=== PATIENT | female | born 1935 | race Caucasian/White ===

== ENCOUNTER 2018-03-30 12:43 | Emergency (ER) | payer MEDICARE, BC ==
[~2018-03-30] VITALS: Ht 157.5 cm; Wt 78.9 kg
[~2018-03-30 12:43] MED LIST: ACETAMINOPHEN325 M1 PO; ALBUTEROL SULFAT2 MG PO; ALBUTEROL0.63 MG/3 NEB; AMLODIPINE BESYL5 MG PO; ASA81 MG PO; AZATHIOPRINE50 MG PO; B-12500 MCG PO; CALCIUM + VITA1 EACH PO; CEFDINIR300 MG PO; CELEXA20 MG PO; CITALOPRAM HBR20 MG PO; CITALOPRAM HBR40 MG PO; COMBIVENT RESPIM4 GM IH; DIOVAN160 MG PO; DIOVAN80 MG PO; DOCUSATE SODIU100 MG PO; DONEPEZIL HCL10 MG; DONEPEZIL HCL10 MG PO; ECOTRIN325 MG PO; EFFER-K 20 MEQ20 MEQ PO; FERROUS SULFAT325 MG PO; FISH OIL 1,2001 EAC1 PO; FUROSEMIDE20 MG PO; HUMULIN N100 UNIT/1 SQ; LANSOPRAZOLE30 MG PO; LASIX40 MG PO; LEVAQUIN500 MG PO; LIPITOR20 MG PO; MAALOX ADVANCE770 ML PO; METOPROLOL PO; METOPROLOL TART25 MG PO; MULTI-VITAMIN1 EACH PO; NORCO 10-325 T1 EACH PO; NORCO PO; NORVASC5 MG PO; PANTOPRAZOLE SO40 MG PO; POTASSIUM CHLO10 ME1 PO; PREDNISONE5 MG PO; PROVENTIL PO; PYRIDOSTIGMINE60 MG PO; TESSALON PERLE100 MG PO; TRANSDERM-SCOP1 EACH TD; TRAZODONE HCL50 MG PO; TYLENOL WITH C1 EACH PO; VESICARE5 MG PO; VITAMIN B-121000 MC1 PO; VITAMIN C500 M1 PO; VITAMIN C500 MG PO; VITAMIN D10000 UNIT PO; VITAMIN D400 UNI1 PO; VITAMIN D5000 UNIT; Z.0.ALBUTEROL0.63 MG NEB; Z.0.AMLODIPINE BESYL PO; Z.0.CITALOPRAM HBR20 PO; Z.0.DETROL LA4 MG PO; Z.0.DIOVAN160 MG PO; Z.0.FISH OIL300 MG; Z.0.IMURAN50 MG PO; Z.0.LANSOPRAZOLE30 M PO; Z.0.LOPRESSOR25 MG PO; Z.0.MILLIPRED5 MG PO; Z.0.NORCO 10-325 T1 PO; Z.1.VITAMIN D400 UNI PO; ZOLPIDEM; [UNRECOGNIZED DRUG - OTHER]; [UNRECOGNIZED DRUG - OTHER] TOP
[2018-03-30] MEDS ORDERED: ACETAMINOPHEN 325 MG TAB PO ONE (13:00)
--- NOTE | 2018-03-30 13:49 | Diagnostic Imaging Report ---
PROCEDURE:X-RAY LEFT HAND, THREE OR MORE VIEWS COMPARISON:None. INDICATIONS:FALL FINDINGS: Plate-screw fixation of the distal radius. Moderate degenerative changes in the DIP, PIP, moderate severe at the first MCP, mild in the remaining MCP, and moderate in the carpal bones with moderate to severe at the radiocarpal joint with degenerative cystic changes between the scaphoid and lunate. There are no fractures, dislocations, lytic or blastic lesions. The bones are well-mineralized. Diffuse soft tissue swelling and subcutaneous emphysema along the ulnar aspect of the left hand. CONCLUSION: 1. No acute fractures. 2. Moderate degenerative changes especially in the wrist. 3. Subcutaneous edema and subcutaneous gas along the ulnar aspect of the left hand. Dictated by: Byron Gómez M.D. on 03/30/2018 at 13:51 Electronically approved by: Byron Gómez M.D. on 03/30/2018 at 13:51
--- NOTE | 2018-03-30 14:17 | Diagnostic Imaging Report ---
History: Fall Comparison studies:CT head 05/18/2017 Technique: Axial images were obtained from the brain and cervical spine. Coronal and sagittal images reconstructed from the axial data. Intravenous contrast: None Findings: Head CT: Scalp/skull: No abnormalities. No fractures, blastic or lytic lesions. Brain sulci: Moderately prominent. Ventricles: Moderate prominence. No hydrocephalus. Extra-axial spaces: No masses. No fluid collections. Parenchyma: Scattered hypodensities of the periventricular and the white matter, nonspecific. No masses, hemorrhage, acute or chronic cortical vascular insults. Sellar/suprasellar region: No abnormalities. Craniocervical junction: Patent foramen magnum. No Chiari one malformation. Atherosclerotic calcifications of the carotid siphons. Cervical spine CT: Fractures: None. Soft tissues: No gross abnormalities. Atlantoaxial articulation: Degenerative changes q. day by decreased predental space, sclerosis and marginal osteophytes. Alignment: Reversal of the cervical spine lordosis centered at C5. Grade 1 anterolisthesis of C2 over C3 and C3 over C4.. No scoliosis. Cervicomedullary junction: No abnormalities. Patent foramen magnum. Vertebrae: No infection or neoplasm. Degenerative changes: Facet hypertrophy and uncinate process hypertrophy results in moderate multilevel foraminal narrowing and mild canal stenosis. Incidental findings: Spiculated nodule partially visualized at the right upper lobe measuring approximately 1 cm in AP diameter. Impression: Head CT: 1. No acute intracranial abnormality. 2. Moderate diffuse volume loss. 3. Moderate chronic microvascular ischemic changes of the white matter. Cervical spine CT: 1. No acute abnormalities. Degenerative changes of the cervical spine 2. Cannot exclude ligament, spinal cord and or vascular abnormalities on the basis of this examination. 3. Incidentally noted 1 cm spiculated nodule at the right lung apex, not seen in previous CT chest 05/20/2017, recommend further evaluation with CT chest with contrast Signed by: DR Filipe Browning M.D. on 03/30/2018 2:14 PM
== END 2018-03-30 17:00 | disposition home or self-care (01) ==
LOC: ER 13:09
DX: S06.0X0A Concussion without loss of consciousness, initial encounter (principal); S60.212A Contusion of left wrist, initial encounter; W06.XXXA Fall from bed, initial encounter; Y92.122 Bedroom in nursing home as the place of occurrence of the external cause
CPT/HCPCS: 70450; 72125; 99284

== ENCOUNTER 2019-05-21 10:54 | Inpatient (IN) | payer MEDICARE, BC ==
[~2019-05-21] VITALS: Ht 157.5 cm; Wt 81.2 kg
--- OUTSIDE RECORDS SUMMARY | 2019-05-21 10:57 | XMS REPORT ---
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 Allergies, Adverse Reactions, Alerts This patient has no known allergies or adverse reactions. Medications This patient has no known medications. Results Test Description Test Time Test Comments Text Results Atomic Results Result Comments HAND 3+ VIEWS LEFT [place] [address] Patient Name: RODGER CASTELLON MR #: [id number] : 1935 Age/Sex: 82/F Req #: [id number] Adm Physician: Ordered by: LUIS MANUEL STARK MD Report #: [id number] Location: ER Room/Bed: Procedure: [id number] DX/HAND 3+ VIEWS LEFT Exam Date: 03/30/18 Exam Time: 1320 REPORT STATUS: Signed PROCEDURE: X-RAY LEFT HAND, THREE OR MORE VIEWS COMPARISON: None. INDICATIONS: FALL FINDINGS: Plate-screw fixation of the distal radius. Moderate degenerative changes in the DIP, PIP, moderate severe at the first MCP, mild in the remaining MCP, and moderate in the carpal bones with moderate to severe at the radiocarpal joint with degenerative cystic changes between the scaphoid and lunate. There are no fractures, dislocations, lytic or blastic lesions. The bones are well-mineralized. Diffuse soft tissue swelling and subcutaneous emphysema along the ulnar aspect of the left hand. CONCLUSION: 1. No acute fractures. 2. Moderate degenerative changes especially in the wrist. 3. Subcutaneous edema and subcutaneous gas along the ulnar aspect of the left hand. Dictated by: Claire Gómez M.D. on 03/30/2018 at 13:51 Electronically approved by: Claire Gómez M.D. on 03/30/2018 at 13:51 Dictated By: CLAIRE GÓMEZ MD 1351 Transcribed By: SELAM on 03/30/18 1351 COPY TO: LUIS MANUEL STARK MD CT CERVICAL SPINE WO [place] [address] Patient Name: RODGER CASTELLON MR #: [id number] : 1935 Age/Sex: 82/F Req #: [id number] Adm Physician: Ordered by: LUIS MANUEL STARK MD Report #: [id number] Location: ER Room/Bed: Procedure: [id number] CT/CT CERVICAL SPINE WO Exam Date: 03/30/18 Exam Time: 1320 REPORT STATUS: Signed History: Fall Comparison studies:CT head 05/18/2017 Technique: Axial images were obtained from the brain and cervical spine. Coronal and sagittal images reconstructed from the axial data. Intravenous contrast: None Findings: Head CT: Scalp/skull: No abnormalities. No fractures, blastic or lytic lesions. Brain sulci: Moderately prominent. Ventricles: Moderate prominence. No hydrocephalus. Extra-axial spaces: No masses. No fluid collections. Parenchyma: Scattered hypodensities of the periventricular and the white matter, nonspecific. No masses, hemorrhage, acute or chronic cortical vascular insults. Sellar/suprasellar region: No abnormalities. Craniocervical junction: Patent foramen magnum. No Chiari one malformation. Atherosclerotic calcifications of the carotid siphons. Cervical spine CT: Fractures: None. Soft tissues: No gross abnormalities. Atlantoaxial articulation: Degenerative changes q. day by decreased predental space, sclerosis and ma rginal osteophytes. Alignment: Reversal of the cervical spine lordosis centered at C5. Grade 1 anterolisthesis of C2 over C3 and C3 over C4.. No scoliosis. Cervicomedullary junction: No abnormalities. Patent foramen magnum. Vertebrae: No infection or neoplasm. Degenerative changes: Facet hypertrophy and uncinate process hypertrophy results in moderate multilevel foraminal narrowing and mild canal stenosis. Incidental findings: Spiculated nodule partially visualized at the right upper lobe measuring approximately 1 cm in AP diameter. Impression: Head CT: 1. No acute intracranial abnormality. 2. Moderate diffuse volume loss. 3. Moderate chronic microvascular ischemic changes of the white matter. Cervical spine CT: 1. No acute abnormalities. Degenerative changes of the cervical spine 2. Cannot exclude ligament, spinal cord and or vascular abnormalities on the basis of this examination. 3. Incidentally noted 1 cm spiculated nodule at the right lung apex, not seen in previous CT chest 05/20/2017, recommend further evaluation with CT chest with contrast Signed by: DR Filipe Browning M.D. on 03/30/2018 2:14 PM Dictated By: FILIPE TORRES MD 1414 Transcribed By: GINA on 03/30/18 1414 COPY TO: LUIS MANUEL STARK MD CT BRAIN WO [place] [address] Patient Name: RODGER CASTELLON MR #: [id number] : 1935 Age/Sex: 82/F Req #: [id number] Adm Physician: Ordered by: LUIS MANUEL STARK MD Report #: [id number] Location: Room/Bed: Procedure: [id number] CT/CT BRAIN WO Exam Date: 03/30/18 Exam Time: 1320 REPORT STATUS: Signed History: Fall Comparison studies:CT head 05/18/2017 Technique: Axial images were obtained from the brain and cervical spine. Coronal and sagittal images reconstructed from the axial data. Intravenous contrast: None Findings: Head CT: Scalp/skull: No abnormalities. No fractures, blastic or lytic lesions. Brain sulci: Moderately prominent. Ventricles: Moderate prominence. No hydrocephalus. Extra-axial spaces: No masses. No fluid collections. Parenchyma: Scattered hypodensities of the periventricular and the white matter, nonspecific. No masses, hemorrhage, acute or chronic cortical vascular insults. Sellar/suprasellar region: No abnormalities. Craniocervical junction: Patent foramen magnum. No Chiari one malformation. Atherosclerotic calcifications of the carotid siphons. Cervical spine CT: Fractures: None. Soft tissues: No gross abnormalities. Atlantoaxial articulation: Degenerative changes q. day by decreased predental space, sclerosis and marginal osteophytes. Alignment: Reversal of the cervical spine lordosis centered at C5. Grade 1 anterolisthesis of C2 over C3 and C3 over C4.. No scoliosis. Cervicomedullary junction: No abnormalities. Patent foramen magnum. Vertebrae: No infection or neoplasm. Degenerative changes: Facet hypertrophy and uncinate process hypertrophy results in moderate multilevel foraminal narrowing and mild canal stenosis. Incidental findings: Spiculated nodule partially visualized at the right upper lobe measuring approximately 1 cm in AP diameter. Impression: Head CT: 1. No acute intracranial abnormality. 2. Moderate diffuse volume loss. 3. Moderate chronic microvascular ischemic changes of the white matter. Cervical spine CT: 1. No acute abnormalities. Degenerative changes of the cervical spine 2. Cannot exclude ligament, spinal cord and or vascular abnormalities on the basis of this examination. 3. Incidentally noted 1 cm spiculated nodule at the right lung apex, not seen in previous CT chest 05/20/2017, recommend further evaluation with CT chest with contrast Signed by: DR Filipe Browning M.D. on 03/30/2018 2:14 PM Dictated By: FILIPE TORRES MD 141 Transcribed By: GINA on 03/30/181413 COPY TO: LUIS MANUEL STARK MD
[2019-05-21] MEDS ORDERED: SODIUM CHLORIDE 0.9% 1000ML 1,000 ML IV STA (11:11)
--- NOTE | 2019-05-21 11:31 | NUR ---
PATIENT TO RADIOLOGY AT THIS TIME
[2019-05-21] MEDS ORDERED: ONDANSETRON HCL INJ 2MG/ML 2ML 2 MG/ML VIAL IV ONE (12:00)
[2019-05-21 12:33] LABS: BASOPHILS % 0.3 % (0.0-1.0); EOSINOPHILS % 0.7 % (0.0-6.0); HEMATOCRIT 38.4 % (34.2-44.1); HEMOGLOBIN 12.8 g/dL (12.0-16.0); LYMPHOCYTES # (AUTO) 1.1 (1.0-3.2); MEAN CORPUSCULAR HEMOGLOBIN 29.9 pg (28-32); MEAN CORPUSCULAR HGB CONC 33.3 g/dL (31-35); MEAN CORPUSCULAR VOLUME 89.7 fL (81-99); MONOCYTES # (AUTO) 0.5 (0.2-0.8); MONOCYTES % 7.8 % (4.4-11.3); NEUTROPHILS # (AUTO) 4.4 (2.1-6.9); NEUTROPHILS % 72.9 % (38.7-80.0); PLATELET COUNT 131 x10e3/uL (140-360); RED BLOOD COUNT 4.28 x10e6/uL (3.6-5.1); RED CELL DISTRIBUTION WIDTH 11.9 % (11.7-14.4)
[2019-05-21 12:54] LABS: ALANINE AMINOTRANSFERASE 32 IU/L (0-55); ALBUMIN 3.6 g/dL (3.5-5.0); ALBUMIN/GLOBULIN RATIO 1.2 (0.8-2.0); ALKALINE PHOSPHATASE 102 IU/L (40-150); AMYLASE 22 U/L (25-125); ANION GAP 13.7 mmol/L (8-16); BLOOD UREA NITROGEN 32 mg/dL (7-26); BUN/CREATININE RATIO 21 (6-25); CALCIUM 9.1 mg/dL (8.4-10.2); CARBON DIOXIDE 26 mmol/L (22-29); CHLORIDE 101 mmol/L (98-107); CREATINE KINASE 118 IU/L (29-168); CREATININE, SERUM 1.55 mg/dL (0.57-1.11); EST GLOMERULAR FILTRATION RATE 32 ML/MIN (60-); GLUCOSE 110 mg/dL (74-118); LIPASE 22 U/L (8-78); POTASSIUM 3.7 mmol/L (3.5-5.1); SODIUM 137 mmol/L (136-145)
--- NOTE | 2019-05-21 12:54 | Diagnostic Imaging Report ---
EXAMINATION: CHEST SINGLE (PORTABLE) INDICATION: Nausea, vomiting, diarrhea. COMPARISON: Multiple prior studies, most recently chest radiograph on 05/21/2017, however the images were not available for review at the time of this dictation. FINDINGS: TUBES and LINES: None. LUNGS: Lungs are moderately inflated. There is no evidence of pneumonia or pulmonary edema. Scattered curvilinear hyperdensities in the right mid and lower lung zones may represent vascular calcifications or endobronchial calcifications. PLEURA: No pleural effusion or pneumothorax. HEART AND MEDIASTINUM: The cardiomediastinal silhouette is unremarkable. There are atherosclerotic calcifications within the aorta. BONES AND SOFT TISSUES: Status post median sternotomy. Counted from superiorly, the first, third, and fifth median sternotomy wires are fractured, of unclear chronicity. UPPER ABDOMEN: No free air under the diaphragm. IMPRESSION: No acute radiographic abnormality. Signed by: Dr. Susanne Ojeda MD on 05/21/2019 12:51 PM
[2019-05-21 13:52] LABS: BILIRUBIN,URINE SMALL (NEGATIVE); CLARITY,URINE CLOUDY (CLEAR); COLOR,URINE YELLOW (YELLOW); KETONES,URINE NEGATIVE (NEGATIVE); LEUKOCYTE ESTERASE ,URINE MODERATE (NEGATIVE); NITRITE,URINE NEGATIVE (NEGATIVE); PROTEIN,URINE DIPSTICK TRACE (NEGATIVE); URINE UROBILINOGEN 0.2 mg/dL (0.2 - 1)
[2019-05-21 13:53] LABS: AMORPHOUS SEDIMENT,URINE MODERATE (FEW); BACTERIA,URINE MODERATE /HPF; EPITHELIAL CELLS,URINE FEW /LPF
--- NOTE | 2019-05-21 14:09 | Diagnostic Imaging Report ---
EXAM: CT Abdomen and Pelvis WITHOUT contrast INDICATION: Stone protocol. COMPARISON: None. TECHNIQUE: Abdomen and pelvis were scanned utilizing a multidetector helical scanner from the lung base to the pubic symphysis without administration of IV contrast. Absence of intravenous contrast decreases sensitivity for detection of focal lesions and vascular pathology. Coronal and sagittal reformations were obtained. Renal stone protocol was performed. IV CONTRAST: None. ORAL CONTRAST: None. RADIATION DOSE: Total DLP: 662.2 mGy*cm Dose modulation, iterative reconstruction, and/or weight based adjustment of the mA/kV was utilized to reduce the radiation dose to as low as reasonably achievable. COMPLICATIONS: None FINDINGS: LINES and TUBES: None. LOWER THORAX: There are endobronchial calcifications in the right middle lobe. Calcified granuloma in the right lower lobe. Coronary atherosclerosis. Extensive mitral annular calcifications. HEPATOBILIARY: Subcentimeter hypodensity in the inferior aspect of the right hepatic lobe, likely representing a cyst. No biliary ductal dilation. GALLBLADDER: Status post cholecystectomy. SPLEEN: No splenomegaly. Dystrophic calcifications in the spleen. PANCREAS: Well-circumscribed 1 cm hypodense lesion in the pancreatic tail (series 3, image 47; -10 HU), which may represent a pancreatic cyst or IPMN. ADRENALS: No adrenal nodules KIDNEYS/URETERS: No hydronephrosis. Bilateral renal cortical atrophy. Punctate 1 mm right mid pole renal stone on series 3, image 47. Simple appearing left lower pole renal cyst measuring up to 2.7 cm. GI TRACT: No abnormal distention, wall thickening, or evidence of bowel obstruction. Status post appendectomy. Status post right hemicolectomy with postsurgical anastomosis. There is scattered sigmoid colonic diverticulosis without CT evidence of diverticulitis. PELVIC ORGANS/BLADDER: Limited evaluation secondary to streak artifact from bilateral hip hardware. Status post hysterectomy. LYMPH NODES: No lymphadenopathy. VESSELS: There are moderate atherosclerotic calcifications in the aorta and branch vessels. PERITONEUM / RETROPERITONEUM: No free air or fluid. BONES: Advanced degenerative changes of the lumbar spine. No acute osseous abnormality. Partially seen bilateral total hip arthroplasty. Levoconvex scoliosis of the lumbar spine. Vertebral augmentation changes at T9-T11. SOFT TISSUES: There is atrophy of the anterior abdominal wall musculature. There is a fat-containing slightly left of midline anterior abdominal wall incisional hernia. IMPRESSION: Punctate nonobstructing 1 mm right mid pole renal stone. Signed by: Dr. Susanne Ojeda MD on 05/21/2019 2:06 PM
[2019-05-21] MEDS ORDERED: MORPHINE SULFATE INJ 4 MG/ML INJ 1ML IV NR (14:15)
[2019-05-21] MEDS ORDERED: CEFTRIAXONE SOD 1 GM/NS 50 ML 50 ML IV ONE (14:45)
[2019-05-21] MEDS ORDERED: MORPHINE SULFATE INJ 4 MG/ML INJ 1ML IV PRN (15:00)
[2019-05-21] MEDS ORDERED: ONDANSETRON HCL INJ 2MG/ML 2ML 2 MG/ML VIAL IV PRN (15:00)
[2019-05-21] MEDS: SODIUM CHLORIDE 0.9% 1000ML 1,000 ML IV SCH ×2 (15:05→22:48)
[2019-05-21 18:20] VITALS: BP 138/63
[2019-05-21 18:25] VITALS: BP 138/63
--- NOTE | 2019-05-21 18:25 | NUR ---
REC'D PATIENT AAOX3 FROM ER, IV TO THE RIGHT FOREARM PATENT AND INTACT AND NS RUNNING. NO S/S OF DISTRESS. APPLIED 2L OF O2 VIA NC DUE TO O2 OF 94% O2. PROVIDED PATIENT WITH BEDSIDE COMMODE. SIDE RAILS UP X2, BED IN LOWEST POSITION, AND CALL LAZO WITHIN REACH. LET PATIENT KNOW TO CALL FOR ASSISTANCE WHEN NEED IT.
[2019-05-21] MEDS ORDERED: LISINOPRIL5 MG PO (19:52)
[2019-05-21] MEDS ORDERED: TOPROL XL25 MG PO (19:52)
[2019-05-21] MEDS ORDERED: KEPPRA500 MG PO (19:52)
[2019-05-21] MEDS ORDERED: ARTIFICIAL TEAR15 M5 OU (19:52)
[2019-05-21] MEDS ORDERED: LASIX40 MG PO (19:52)
[2019-05-21] MEDS ORDERED: PANTOPRAZOLE SO40 MG PO (19:52)
[2019-05-21] MEDS ORDERED: POTASSIUM CHLO10 ME1 PO (19:52)
[2019-05-21] MEDS ORDERED: ACETAMINOPHEN325 M1 PO ×2 (19:52)
[2019-05-21] MEDS ORDERED: PYRIDOSTIGMINE60 MG PO (19:52)
[2019-05-21] MEDS ORDERED: ZOFRAN8 MG PO (19:52)
[2019-05-21] MEDS ORDERED: LIPITOR20 MG PO (19:52)
[2019-05-21] MEDS ORDERED: CLARITIN-D 241 EACH PO (19:52)
[2019-05-21] MEDS ORDERED: TESSALON PERLE100 MG PEG (19:52)
[2019-05-21] MEDS ORDERED: LEXAPRO10 MG PO (19:52)
[2019-05-21] MEDS ORDERED: OXYBUTYNIN CHLOR5 MG PO (19:52)
--- NOTE | 2019-05-21 19:59 | NUR ---
Received change of shift report from AM nurse. Rounds completed.
[2019-05-21 20:00] VITALS: BP 141/75
[2019-05-22] VITALS (8 sets, daily range): BP systolic 122–152; BP diastolic 53–65
--- NOTE | 2019-05-22 | NUR ---
Patient AAOx3. Order to d/c Tele done. Patient denies pain at this time. IV to right FA dry, intact and patent.Continue monitor for changes in patient condition. Patient up to BSC with asst. Brown diarrehea moderate amount.
--- NOTE | 2019-05-22 03:46 | NUR ---
Patient resting quitly with no c/o at this time. Continue monitor.
[2019-05-22 06:06] LABS: ANION GAP 11.7 mmol/L (8-16); BLOOD UREA NITROGEN 17 mg/dL (7-26); BUN/CREATININE RATIO 20 (6-25); CALCIUM 7.9 mg/dL (8.4-10.2); CARBON DIOXIDE 21 mmol/L (22-29); CHLORIDE 111 mmol/L (98-107); CREATININE, SERUM 0.83 mg/dL (0.57-1.11); EST GLOMERULAR FILTRATION RATE > 60 ML/MIN (60-); GLUCOSE 78 mg/dL (74-118); POTASSIUM 3.7 mmol/L (3.5-5.1); SODIUM 140 mmol/L (136-145)
[2019-05-22 06:32] LABS: BASOPHILS % 0.4 % (0.0-1.0); EOSINOPHILS # (AUTO) 0.1 (0.0-0.4); HEMATOCRIT 33.6 % (34.2-44.1); HEMOGLOBIN 10.7 g/dL (12.0-16.0); LYMPHOCYTES # (AUTO) 1.3 (1.0-3.2); LYMPHOCYTES % 28.4 % (18.0-39.1); MEAN CORPUSCULAR HEMOGLOBIN 29.2 pg (28-32); MEAN CORPUSCULAR HGB CONC 31.8 g/dL (31-35); MEAN CORPUSCULAR VOLUME 91.8 fL (81-99); MONOCYTES # (AUTO) 0.3 (0.2-0.8); MONOCYTES % 7.4 % (4.4-11.3); NEUTROPHILS # (AUTO) 2.8 (2.1-6.9); NEUTROPHILS % 61.4 % (38.7-80.0); PLATELET COUNT 113 x10e3/uL (140-360); RED BLOOD COUNT 3.66 x10e6/uL (3.6-5.1)
[2019-05-22] MEDS: SODIUM CHLORIDE 0.9% 1000ML 1,000 ML IV SCH ×3 (06:48→21:24)
--- NOTE | 2019-05-22 07:04 | NUR ---
H&P PCP ; NEUROLOGIST: Dr. Hall. CHIEF COMPLAINT: dehydration HISTORY OF PRESENT ILLNESS: This is an 83-year-old woman with a history of myasthenia gravis now with dehydration and abnormal labs; PAST MEDICAL HISTORY: Myasthenia gravis, acute respiratory failure, left-sided spontaneous pneumothorax with mild loculated pleural effusion status post chest tube placement and status post removal, Clostridium difficile positive diarrhea, bilateral pleural effusion, chronic systolic congestive heart failure, troponin leak secondary to congestive heart failure, constipation, physical deconditioning, pulmonary embolism, DVT, hypertensive heart ds, GERD, shingles, osteoporosis, macular degeneration, overactive bladder, Alzheimer's dementia, pneumonia with pseudomonas, bacteremia with enterococcus, urinary tract infection, BRANDI, Elver's paralysis, New onset seizure 2017, Elevated T[place], Left lung PNA, C.diff diarrhea PAST SURGICAL HISTORY: Vertebroplasty, C1 fracture without operation. ALLERGIES: PER THE ELECTRONIC MEDICAL RECORDS. FAMILY HISTORY: Patient is . She has a daughter and a son who are both involved in her care and [id number] and also gave out history. SOCIAL HISTORY: She is a intermediate resident. MEDICATIONS: Per the electronic medical records. REVIEW OF SYSTEMS: Unobtainable. VITAL SIGNS: On admission temperature 99.3, pulse 95, blood pressure 128/69, respiratory rate 16 and oxygen 100% on 2 liters nasal cannula. T-max is 100.3. PHYSICAL EXAMINATION GENERAL APPEARANCE: A tired-appearing woman resting in bed. HEENT: Anicteric. CARDIOVASCULAR: Normal S1/S2. LUNGS: She has moderate breath sounds, reduced at the bases. ABDOMEN: Soft, nontender, nondistended. EXTREMITIES: No edema or calf tenderness. NEUROLOGICALLY: She is asleep, not interactive. Tossing a little bit and moving her extremities but not interactive. SKIN: Dry. PSYCHIATRIC: Unable to assess. LABS: Reviewed. ASSESSMENT AND PLAN: This is an 83-year-old woman. Dehydration Hyperkalemia ARVIND likely due to ATN Right nephrolithiasis- 1mm- nonObx Myasthenia gravis PHysical deconditioning Chronic systolic congestive heart failure Hx PE/DVT Hypertensive heart ds. GERD Osteoporosis Alzheimer's dementia PLAN IVF; PT restart home meds Scd D/c planning; London Petty MD, PhD.
[2019-05-22] MEDS ORDERED: BENZONATATE 100 MG CAP PO PRN (07:15)
[2019-05-22] MEDS ORDERED: SCOPOLAMINE 1.5 MG PATCH TD PRN (07:15)
[2019-05-22] MEDS ORDERED: ACETAMINOPHEN 325 MG TAB PO PRN (07:15)
--- NOTE | 2019-05-22 07:30 | NUR ---
Dr. Petty visited and cath order was clarified. The pt. currently has no cath and is voiding well. She is currently sitting in the bedside chair for breakfast and was reminded to call for assistance.
[2019-05-22 08:28] LABS: EOSINOPHILS % (MANUAL) 3 % (0-7); LYMPHOCYTES % (MANUAL) 19 % (19-48); MONOCYTES % (MANUAL) 11 % (3.4-9.0); NEUTROPHILS % (MANUAL) 67 % (40-74); PLATELET ESTIMATE ADEQUATE; PLATELET MORPHOLOGY COMMENT NORMAL; RBC MORPHOLOGY COMMENT NORMAL
[2019-05-22] MEDS ORDERED: PANTOPRAZOLE SOD 40 MG TABEC PO SCH (09:00)
[2019-05-22] MEDS ORDERED: ATORVASTATIN 20 MG TAB PO SCH ×2 (09:00→21:00)
[2019-05-22] MEDS ORDERED: ONDANSETRON HCL 4 MG ORAL DISINTEGRATING TAB PO PRN (09:15)
--- NOTE | 2019-05-22 09:15 | NUR ---
The pt. was assisted back to bed and made comfortable post med pass. oxygen intact and she reports dull pain below her left breast.
[2019-05-22] MEDS: LORATADINE/PSEUDOEPHEDRINE 24 HR SR TAB PO SCH (09:36)
[2019-05-22] MEDS: OXYBUTYNIN CHLORIDE 5 MG TAB PO SCH ×2 (09:36→17:30)
[2019-05-22] MEDS: LEVETIRACETAM 500 MG TAB PO SCH ×2 (09:36→21:23)
[2019-05-22] MEDS: PANTOPRAZOLE SOD 40 MG TABEC PO SCH (09:37)
[2019-05-22] MEDS: ESCITALOPRAM OXALATE 10 MG TAB PO SCH (09:37)
[2019-05-22] MEDS: PYRIDOSTIGMINE BROMIDE 60 MG TAB PO SCH ×4 (09:37→21:23)
[2019-05-22] MEDS: METOPROLOL SUCCINATE 25 MG TAB XL PO SCH (09:37)
[2019-05-22] MEDS: POTASSIUM CHLORIDE 10MEQ EA PO SCH (09:39)
--- NOTE | 2019-05-22 11:41 | NUR ---
DISCUSSED IN BARRIER ROUNDS, PT ON ABX, O2, CLEAR LIQUIDS, PT IS EVALUATING, POSSIBLE RIGHT KIDNEY STONE, NO VIMITING PROJECTED DISCHARGE IS TOMORROW.
[2019-05-22] MEDS ORDERED: PYRIDOSTIGMINE BROMIDE 60 MG TAB PO SCH (12:00)
--- NOTE | 2019-05-22 16:05 | NUR ---
Visit made by the Spiritual Care Department Pastoral Visitor, Milena Jang. PV provided pastoral presence, prayer, hospitality, and supportive listening. Pastoral Visitor informed pt/family of the scope of Director Of Program Management Services and availability. VIJAYA CALLE Manufacturing Maintenance Technician Spiritual Care Department O: [phone] Pager: [phone] ([phone] number calling from)
--- NOTE | 2019-05-22 19:28 | NUR ---
Received patient awake on bed, on oxygen support, with ongoing IV fluids, call light within easy reach, bed alarm on, bed in low position and locked. No complaints of pain at this time. Will continue to monitor
[2019-05-22] MEDS ORDERED: DONEPEZIL HCL 5 MG TAB PO SCH (21:00)
[2019-05-23] VITALS: BP 129/61
[2019-05-23 04:00] VITALS: BP 124/58
[2019-05-23] MEDS: SODIUM CHLORIDE 0.9% 1000ML 1,000 ML IV SCH (06:20)
[2019-05-23 07:42] VITALS: BP 144/63
[2019-05-23] MEDS: PANTOPRAZOLE SOD 40 MG TABEC PO SCH (08:17)
[2019-05-23] MEDS: METOPROLOL SUCCINATE 25 MG TAB XL PO SCH (08:17)
[2019-05-23 08:18] VITALS: BP 144/63
[2019-05-23] MEDS: OXYBUTYNIN CHLORIDE 5 MG TAB PO SCH (08:18)
[2019-05-23] MEDS: ESCITALOPRAM OXALATE 10 MG TAB PO SCH (08:18)
[2019-05-23] MEDS: POTASSIUM CHLORIDE 10MEQ EA PO SCH (08:18)
[2019-05-23] MEDS: LEVETIRACETAM 500 MG TAB PO SCH (08:18)
[2019-05-23] MEDS: PYRIDOSTIGMINE BROMIDE 60 MG TAB PO SCH ×2 (08:18→14:59)
[2019-05-23] MEDS: LORATADINE/PSEUDOEPHEDRINE 24 HR SR TAB PO SCH (08:18)
[2019-05-23 11:08] VITALS: BP 138/60
--- NOTE | 2019-05-23 11:58 | NUR ---
PT SIGNED CHOICE TO RETURN TO [facility], FAXED CLINICALS.
--- NOTE | 2019-05-23 13:30 | NUR ---
PT ACCEPTED BACK TO [facility] [address] UNDER CARE OF DR SIDDIQUI CALL REPORT TO [phone]
--- NOTE | 2019-05-23 14:48 | NUR ---
REPORT CALLED TO [facility]- SPOKE WITH JOSE MARIA MCCLAIN AT 1445. PATIENT TRANSFERRING TO ROOM 311B.
--- NOTE | 2019-06-15 06:14 | NUR ---
D/C summary Principal Dx: Dehydration Hyperkalemia ARVIND likely due to ATN Right nephrolithiasis- 1mm- nonObx Myasthenia gravis PHysical deconditioning Chronic systolic congestive heart failure Hx PE/DVT Hypertensive heart ds. GERD Osteoporosis Alzheimer's dementia PLAN IVF; PT restart home meds Scd D/c planning; d/c home f/u pcp 1 week stable d/c>35mins London Petty MD, PhD.
== END 2019-05-23 16:01 | DRG 640 ==
LOC: ER 10:54 → ERHOLD 15:52 → MED/SURG3 18:23
PROVIDERS: ADMIT Internal Medicine; ATTEND Internal Medicine
DX: E86.0 Dehydration (principal); N17.0 Acute kidney failure with tubular necrosis; I50.22 Chronic systolic (congestive) heart failure; G70.00 Myasthenia gravis without (acute) exacerbation; I11.0 Hypertensive heart disease with heart failure; Z86.711 Personal history of pulmonary embolism; Z79.01 Long term (current) use of anticoagulants; M81.0 Age-related osteoporosis without current pathological fracture; Z86.718 Personal history of other venous thrombosis and embolism; K21.9 Gastro-esophageal reflux disease without esophagitis; G30.9 Alzheimer's disease, unspecified; F02.80 Dementia in other diseases classified elsewhere, unspecified severity, without behavioral disturbance, psychotic disturbance, mood disturbance, and anxiety; N20.0 Calculus of kidney
CPT/HCPCS: 36415; 71045; 74176; 80048; 80053; 81001; 82150; 82550; 82553; 83690; 83880; 84484; 85025; 93005; 99284; J0696; J2405; J7030